=== PATIENT | male | born 1970 | race Caucasian/White ===

== ENCOUNTER 2019-05-02 15:12 | Emergency (ER) | payer SELFPAY ==
[~2019-05-02] VITALS: Ht 165.1 cm; Wt 68.2 kg
[~2019-05-02 15:12] MED LIST: CLEOCIN HC150 MG/CAP PO; CLINDAMYCIN150 MG PO; IBU-8800 MG PO; MOTRIN; NORCO 325 MG-51 TAB; NORCO 325 MG-51 TAB PO; PERCOCET 325 MG1 TA2 PO
[2019-05-02 15:46] VITALS: BP 124/70; TEMP 98.2
[2019-05-02 16:41] VITALS: PULSE 65
== END 2019-05-02 16:41 | disposition home or self-care (01) ==
LOC: COL.ER 15:12
DX: S00.93XA Contusion of unspecified part of head, initial encounter (principal); W22.8XXA Striking against or struck by other objects, initial encounter; Y92.59 Other trade areas as the place of occurrence of the external cause

== ENCOUNTER 2019-07-23 19:12 | Emergency (ER) | payer BC ==
[~2019-07-23] VITALS: Ht 162.6 cm; Wt 72.7 kg
[2019-07-23 19:19] VITALS: BP 153/83; TEMP 98.4
[2019-07-23 19:52] LABS: BASO # 0.1 (0.0-0.2); BASO % 0.5 % (0.0-2.0); EOS # 0.2 (0.0-0.7); EOS % 1.9 % (0-4.0); GRAN # 5.4 (1.4-6.5); HEMATOCRIT 48.3 % (42.0-52.0); HEMOGLOBIN 16.2 g/dl (13.5-18.0); LYMPH # 3.4 (1.2-3.4); LYMPH % 34.4 % (20.0-51.0); MEAN CELL VOLUME 95 fl (80.0-100.0); MEAN CORPUSCULAR HEMOGLOBIN 32 pg (27.0-31.0); MEAN CORPUSCULAR HGB CONC 34 g/dl (33.0-37.0); MONO # 0.8 (0.1-0.6); PLATELET COUNT 269 K/mm3 (130-400); RED BLOOD COUNT 5.09 M/mm3 (4.20-5.60); REDCELL DISTRIBUTION WIDTH-CV 13.7 % (11.5-14.5)
[2019-07-23 20:13] LABS: ALBUMIN 4.5 gm/dL (3.5-5.0); BILIRUBIN,TOTAL 0.3 mg/dL (0.0-1.0); CALCIUM 9.4 mg/dL (8.4-10.2); CREATININE, serum 1.24 (0.66-1.25); POTASSIUM 4.3 mmol/L (3.4-5.0); TOTAL PROTEIN 7.7 gm/dL (6.4-8.2)
[2019-07-23 20:24] LABS: COLLECTION METHOD CLEAN CATCH
[2019-07-23 20:34] LABS: MUCOUS Present /lpf; PH 5 (5-8); SQUAMOUS EPITHELIAL 0-2 /hpf; URINE APPEARANCE Clear; URINE BACTERIA None Seen /hpf; URINE BILIRUBIN Negative (NEGATIVE); URINE BLOOD 2+ (NEGATIVE); URINE COLOR Yellow; URINE GLUCOSE Negative (NEGATIVE); URINE KETONE Negative (NEGATIVE); URINE LEUKOCYTE ESTERASE Negative (NEGATIVE); URINE NITRATE Negative (NEGATIVE); URINE PROTEIN(semi-quant) Negative (NEGATIVE); URINE RBC 0-2 /hpf; URINE UROBILINOGEN Negative (NEGATIVE)
[2019-07-23] MEDS ORDERED: PERCOCET 325 MG1 TA2 PO (20:47)
[2019-07-23 21:35] VITALS: PULSE 81
== END 2019-07-23 21:35 | disposition home or self-care (01) ==
LOC: COL.ER 19:12
PROVIDERS: Emergency Medicine
DX: S20.212A Contusion of left front wall of thorax, initial encounter (principal); Y04.0XXA Assault by unarmed brawl or fight, initial encounter; Y92.511 Restaurant or cafe as the place of occurrence of the external cause
CPT/HCPCS: A9284